=== PATIENT | female | born 1955 | race Caucasian/White ===

== ENCOUNTER → 2019-10-01 16:15 | Outpatient (BNVA) | payer MEDICARE, MEDICAID, SELFPAY | PROVIDERS: Family Provider Family Medicine; PCP Family Medicine; Visit Provider Family Medicine | DX: M79.641 Pain in right hand (principal); M79.89 Other specified soft tissue disorders; M25.552 Pain in left hip; G89.29 Other chronic pain; F11.21 Opioid dependence, in remission; G47.00 Insomnia, unspecified; G89.4 Chronic pain syndrome; F31.9 Bipolar disorder, unspecified; F41.1 Generalized anxiety disorder; M19.90 Unspecified osteoarthritis, unspecified site | CPT/HCPCS: 73130; 80053; 81000; 81003; 82306; 82607; 82652; 84443; 85007; 85027; 85651; 86140; 86160; 86235; 86431 ==

== ENCOUNTER → 2019-12-11 09:07 | Outpatient (BNVA) | payer MEDICARE, MEDICAID, SELFPAY | PROVIDERS: Family Provider Family Medicine; PCP Family Medicine; Visit Provider Counselor Professional | DX: F33.2 Major depressive disorder, recurrent severe without psychotic features (principal); F41.1 Generalized anxiety disorder | CPT/HCPCS: 90791 ==

== ENCOUNTER → 2020-01-09 08:48 | Outpatient (BNVA) | payer MEDICARE, MEDICAID, SELFPAY | PROVIDERS: Family Provider Family Medicine; PCP Family Medicine; Visit Provider Psychiatry & Neurology Psychiatry | DX: F41.1 Generalized anxiety disorder (principal); F33.2 Major depressive disorder, recurrent severe without psychotic features; F17.200 Nicotine dependence, unspecified, uncomplicated; F11.21 Opioid dependence, in remission | CPT/HCPCS: 99204 ==

== ENCOUNTER → 2020-02-17 07:57 | Outpatient (BNVA) | payer MEDICARE, MEDICAID, SELFPAY | PROVIDERS: Family Provider Family Medicine; PCP Family Medicine; Visit Provider Psychiatry & Neurology Psychiatry | DX: F31.9 Bipolar disorder, unspecified (principal); F11.21 Opioid dependence, in remission; F17.200 Nicotine dependence, unspecified, uncomplicated; F33.2 Major depressive disorder, recurrent severe without psychotic features; F41.1 Generalized anxiety disorder | CPT/HCPCS: 99213 ==

== ENCOUNTER → 2020-08-31 14:03 | Outpatient (BNVA) | payer MEDICARE, MEDICAID, SELFPAY | PROVIDERS: Family Provider Family Medicine; PCP Family Medicine; Visit Provider Family Medicine | DX: S69.91XA Unspecified injury of right wrist, hand and finger(s), initial encounter (principal); X58.XXXA Exposure to other specified factors, initial encounter | CPT/HCPCS: 73130 ==

== ENCOUNTER → 2020-10-07 14:53 | Outpatient (BNVA) | payer MEDICARE, MEDICAID, SELFPAY | PROVIDERS: Family Provider Family Medicine; PCP Family Medicine; Visit Provider Podiatrist Foot & Ankle Surgery | DX: M79.671 Pain in right foot (principal); M79.672 Pain in left foot | CPT/HCPCS: 73630 ==

== ENCOUNTER → 2021-03-29 15:43 | Outpatient (BNVA) | payer MEDICARE, MEDICAID, SELFPAY | PROVIDERS: Family Provider Family Medicine; Visit Provider Podiatrist Foot & Ankle Surgery | DX: M79.671 Pain in right foot (principal); M79.672 Pain in left foot | CPT/HCPCS: 73630 ==

== ENCOUNTER → 2021-04-12 09:55 | Outpatient (BNVA) | payer MEDICARE, MEDICAID, SELFPAY | PROVIDERS: Family Provider Family Medicine; Visit Provider Family Medicine | DX: M20.41 Other hammer toe(s) (acquired), right foot (principal); M20.42 Other hammer toe(s) (acquired), left foot; G25.81 Restless legs syndrome; J44.9 Chronic obstructive pulmonary disease, unspecified; G89.4 Chronic pain syndrome; M19.90 Unspecified osteoarthritis, unspecified site; F51.04 Psychophysiologic insomnia; F31.9 Bipolar disorder, unspecified; R03.0 Elevated blood-pressure reading, without diagnosis of hypertension | CPT/HCPCS: 87635 ==

== ENCOUNTER 2021-04-15 07:52 | Day surgery (SDC) | payer MEDICARE, MEDICAID, SELFPAY ==
[2021-04-14 10:44] VITALS: BMI 19.5
[2021-04-15] VITALS (8 sets, daily range): BP systolic 103–164; BP diastolic 53–99; PULSE 59–80; RESP 14–18; TEMP 36.2–36.8; O2SAT 94–100
--- NOTE | 2021-04-15 | SCC_ITS ---
Procedure Done: Right Connor osteotomy. Left plantar fascia fibromatosis. CPT [place] 02370 [place] 30682 1 second of fluoroscopic guidance, for a cumulative dose of 0.02 mGy, was provided to Dr. Shultz by the radiology department. C-arm images of the RIGHT foot were saved for the patient's permanent record. [facility]
[2021-04-15] MEDS: sodium chloride 0.9% 1,000 ML 30 ML IV (08:44)
--- NOTE | 2021-04-15 08:48 | ANES.PREANE2 ---
Pre-Anesthetic Assessment Pre-Anesthetic Assessment: Height/Weight: Height 1.5 m Weight 43.998 kg Temp Pulse Resp BP Pulse Ox 97.1 F L 69 18 151/67 94 04/15/21 08:19 04/15/21 08:19 04/15/21 08:19 04/15/21 08:19 04/15/21 08:19 Preop Diagnosis: Right bunion and right second hammertoe Proposed Procedure: Operation Date: 04/15/21 09:10 Proposed Procedures p Connor Osteotomy 98318 22046 M20.12 M20.42(Right) - Hal Shultz DPM s Hammertoe Correction(Right) - Hal Shultz DPM Familial anesthetic complications: none Was Beta Ashwin taken within 24 hours: N/A Was Clonidine taken within 24 hours: N/A Last intake: Intake Last Liquid Date 04/14/21 Last Liquid Time 22:00 Last Solid Date 04/14/21 Last Solid Time 17:00 Social: Social History: Tobacco and No alcohol Exam: Pre-Anes Outpt Exam: alert, oriented x 3, clear to auscultation bilaterally and regular rate & rhythm Additional Exam Findings (including area of procedure): diminished Airway: Cervical ROM: WNL MP: 2 Dentition: Other (no teeth) Pulmonary: Pulmonary: COPD Anesthetic Plan: ASA status: 3 Anesthesia: MAC Risk of > 500 ml blood loss (7ml/kg in children): No Meds/Allergies Current Medications: Current Medications Generic Name Dose Route Start Last Admin Trade Name Freq PRN Reason Stop Dose Admin Sodium Chloride 1,000 mls @ 30 ml s/hr 04/15/21 08:15 04/15/21 08:44 Sodium Chloride 0.9% IV 04/16/21 08:14 30 mls/hr .Q24H SHERINE Administration PFSH Anesthesia PFSH: Medical History Bipolar depression Chronic arthritis Chronic migraine Chronic pain syndrome COPD with asthma Fibromyalgia Foot pain, bilateral TOMMIE (generalized anxiety disorder) GERD (gastroesophageal reflux disease) Insomnia Lower extremity surgery planned Opioid dependence in remission She has a history of dependence on opioids. She is not going to be restarted on these medications. Due to her positive meth in urine I doubt any Pain Management Clinic will see her. Restless leg syndrome Surgical History H/O section S/P tubal ligation Family History Father Cancer Brother Cancer Social History Smoking and tobacco status: current every day smoker cigarettes Quit status (tobacco): has quit using tobacco Second hand smoke exposure: No Alcohol intake: never Desire information about alcohol rehabilitation?: No Desire information about substance/drug rehabilitation?: No History of recent travel: No Current gender identity: Female Female Reproductive History: Spontaneous abortions: No Data Anesthesia Cardiac Studies: No Data to Display
--- NOTE | 2021-04-15 09:18 | P.HPUD_ITS ---
Surgery/Procedure H&P Update DATE OF PROCEDURE: April 15, 2021 DATE H&P PERFORMED: 04/12/21 H&P UPDATE INFORMATION: I have reviewed H&P completed within last 30 days, I have examined patient prior to procedure, No changes to prior documentation and H&P is in [facility] [place] EMR on date indicated PREOP DIAGNOSIS: Right bunion and right second hammertoe PLANNED PROCEDURE: Operation Date: 04/15/21 09:10 Proposed Procedures p Connor Osteotomy 13320 [id number] M20.12 M20.42(Right) - Hal Shultz DPM s Hammertoe Correction(Right) - Hal Shultz DPM
--- NOTE | 2021-04-15 09:27 | P.HPUD_ITS ---
Surgery/Procedure H&P Update DATE OF PROCEDURE: April 15, 2021 DATE H&P PERFORMED: 04/12/21 H&P UPDATE INFORMATION: I have reviewed H&P completed within last 30 days, I have examined patient prior to procedure, No changes to prior documentation and H&P is in [facility] [place] EMR on date indicated PREOP DIAGNOSIS: Right bunion and second hammertoe. Left foot plantar fibromatosis PRIMARY INDICATION FOR PROCEDURE: Right bunion, right second hammertoe, left plantar fibromatosis PLANNED PROCEDURE: Operation Date: 04/15/21 09:10 Proposed Procedures p Connor Osteotomy 20047 [id number] M20.12 M20.42(Right) - Hal Shultz DPM s Hammertoe Correction(Right) - Hal Shultz DPM Left plantar fascia cortisone injection
--- NOTE | 2021-04-15 09:29 | P.OP_ITS ---
Operative Report Date of procedure: April 15, 2021 Pre-op Diagnosis: Right bunion and second hammertoe. Left foot plantar fibromatosis Post-op diagnosis: same Post-op Findings: Improved alignment to the right bunion without indication for second hammertoe repair. Left plantar fibromatosis in the medial band of the plantar fascia. Procedure Done: Right Connor osteotomy. Left plantar fascia fibromatosis. CPT code 37723 and 60129 Implants: Arlington 28 10 mm x 10 mm x 10 mm angled staple 4-0 Vicryl, 4-0 nylon Specimens removed/disposition: None Pathology: none sent Surgeon: Hal Shultz D.P.M. [employer]: Amaury Anesthesia: MAC Estimated blood loss: Less than 5 mL Tourniquet time: 22 minutes IV fluids: None Urine output: None Complications: None Findings: None Condition: stable Disposition: PACU Brief History: Patient has a hallux valgus deformity to her right foot that has failed padding, offloading and wide accommodative shoes this continues to rub her second toe causing friction, irritation, callus buildup and pain. She like to discuss straightening of her great toe and possible hammertoe repair. She also has plantar fibromatosis this is a palpable mass at the medial band of her left plantar fascia this has been progressively more painful and would like to have a cortisone shot to this while she is asleep. Risks include pain, b leeding, numbness, infection, hardware irritation, hardware failure, delayed union, malunion, nonunion, recurrence of deformity, need for further surgical intervention, plantar fascial rupture. Patient is agreeable wishes to proceed. Has been n.p.o. since midnight. Covid screening negative. Informed consent signed. I initialed her right and left foot, no guarantees written, expressed or implied. Procedure: Under mild sedation the patient was brought to the operating room and placed on the operating table in supine position. A timeout was performed. Anesthesia was then administered by the anesthesia service. Local anesthesia injected by myself consisting of 0.5% Marcaine plain total of 20 cc right Rivers block fashion. Well-padded pneumatic tourniquet applied to the right ankle. Left foot alcohol wipe applied directly to the left plantar foot near the palpable mass and a cortisone injection consisting of 1 to one-to-one mixture of 1 cc of 0.5 Marcaine, 1 cc of dexamethasone and 1 cc of Kenalog injected directly to and surrounding the left plantar fascial mass. This was covered with a Band-Aid. Next the right lower extremity was scrubbed, pleura and draped and prepped utilizing normal aseptic technique. Right foot wrapped with an Esmarch bandage and the tourniquet inflated to 200 mmHg. Attention was directed to the medial aspect of the right hallux where a linear longitudinal incision was made at the level of the proximal phalanx dissection carried through subcutaneous tissue down to periosteum utilizing blunt and sharp technique. Care was taken to retract and preserve neurovascular and tendinous structures. All bleeders were ligated and cauterized as necessary. Periosteal tissue was reflected dorsally and plantarly and a Connor osteotomy was performed at the diaphyseal metaphyseal junction proximally maintaining a lateral cortical hinge. This was then closed off bone which was passed from operative field and fixated utilizing a Arlington 28 10 mm x 10 mm x 10 mm angled staple with excellent bony apposition and compression noted without violating the first metatarsophalangeal joint confirmed with fluoroscopy. Incision was flushed with saline solution and closed in a layered fashion 4-0 Vicryl with subcutaneous tissue and 4-0 nylon on skin. Tourniquet was deflated and a prompt hyperemic response was noted to the distal digits of the right foot patient tolerated the procedure well and was transferred to the PACU with vital signs stable vascular status intact. Exparel 10 cc expanded with Marcaine was injected about the operative site of note the corrected position of the hallux negated the need for hammertoe correction there is no friction rubbing or valgus deformity. Patient will be discharged home after period of perioperative monitoring.
[2021-04-15] MEDS: triamcinolone 40 mg/mL SDV IM (09:58)
[2021-04-15] MEDS: dexamethasone 4 mg/mL INJ INJECTION (09:59)
--- NOTE | 2021-04-15 10:22 | XR_ITS ---
WS: [id number] Right foot, 3 views, 04/15/2021 Clinical Data: post op Comparison: Right foot, 03/29/2021. Findings: The patient had an osteotomy of the base of the right first proximal phalanx of the foot. There is an orthopedic staple at the base of the proximal phalanx. XR/XR foot RT min 3V* [id number] Impression: Osteotomy of the right foot first proximal phalanx.
--- NOTE | 2021-04-15 16:01 | ANE.PACU2 ---
Inpatient post-anesthesia follow up: Airway intact: Yes Vital signs: Temperature 98.2 F Pulse Rate 80 Respiratory Rate 16 Blood Pressure 164/99 Pulse Oximetry 98 Oxygen Delivery Me thod Room Air Oxygen Flow Rate 8 Fraction of Inspir ed Oxygen Hydration adequate: Yes Nausea and vomiting: No Pain level: 3 Mental status: Baseline
== END 2021-04-15 11:50 | disposition home or self-care (01) ==
PROVIDERS: Visit Provider Podiatrist Foot & Ankle Surgery
PROC: (CPT 28298; principal; 2021-04-15 09:00)
PROC: 3E0U3GC Introduction of Other Therapeutic Substance into Joints, Percutaneous Approach (ICD-10-PCS; CPT 20610; 2021-04-15 09:00)
DX: M21.611 Bunion of right foot (principal); M20.41 Other hammer toe(s) (acquired), right foot; M72.2 Plantar fascial fibromatosis; J44.9 Chronic obstructive pulmonary disease, unspecified; M79.7 Fibromyalgia; F17.210 Nicotine dependence, cigarettes, uncomplicated
CPT/HCPCS: 20550; 28298; 73630; 76000; C1713; C9290; J0690; J1100; J2704; J3010; J3301; J3490; J7030

== ENCOUNTER → 2021-04-28 13:10 | Outpatient (BNVA) | payer MEDICARE, MEDICAID, SELFPAY | PROVIDERS: Visit Provider Podiatrist Foot & Ankle Surgery | DX: Z98.890 Other specified postprocedural states (principal) | CPT/HCPCS: 73630 ==

== ENCOUNTER → 2021-05-12 14:48 | Outpatient (BNVA) | payer MEDICARE, MEDICAID, SELFPAY | PROVIDERS: Visit Provider Podiatrist Foot & Ankle Surgery | DX: Z47.89 Encounter for other orthopedic aftercare (principal) | CPT/HCPCS: 73630 ==

== ENCOUNTER → 2022-09-18 10:55 | Outpatient (BNVA) | payer MEDICARE, MEDICAID, SELFPAY | PROVIDERS: PCP Family Medicine; Visit Provider Podiatrist Foot & Ankle Surgery | DX: T84.84XA Pain due to internal orthopedic prosthetic devices, implants and grafts, initial encounter (principal); Y79.2 Prosthetic and other implants, materials and accessory orthopedic devices associated with adverse incidents | CPT/HCPCS: 73630; 99214 ==

== ENCOUNTER → 2022-09-22 05:31 | Day surgery (SDC) | payer MEDICARE, MEDICAID, SELFPAY ==
[2022-09-22 06:02] VITALS: BP 155/91; PULSE 96; RESP 17; TEMP 37.1; O2SAT 95
--- NOTE | 2022-09-22 06:09 | W.PM.OPSUD ---
Surgery/Procedure H&P Update DATE OF PROCEDURE: September 22, 2022 DATE H&P PERFORMED: 09/18/22 CHANGES TO PREVIOUS DOCUMENTATION: None PREOP DIAGNOSIS: Painful hardware right great toe PLANNED PROCEDURE: Operation Date: 09/22/22 07:20 Proposed Procedures p Hardware removal right great toe 52239,T84.84XA(Right) - Hal Shultz DPM
--- NOTE | 2022-09-22 06:10 | P.OP_ITS ---
Operative Report Date of procedure: September 22, 2022 Pre-op diagnosis: Preop Diagnosis Painful hardware right great toe Post-op diagnosis: Same Post-op findings: None Procedure done: Hardware removal right great toe Implants: 4-0 nylon Specimens removed/disposition: Nitinol staple 10 mm x 10 mm x 10 mm disposed of Pathology: None Surgeon: Hal Shultz D.P.M. [employer] Instructor: Valerie Estimated blood loss: 5 8 IV fluids: None Urine output: 0 Complications: None Brief History: Patient examined and evaluated, findings and treatment options were discussed with patient at length.? Patient has pain at hardware site right hallux medial aspect of the proximal phalanx.? X-ray right foot 3 view shows complete osseous healing of Connor osteotomy of the right hallux.? Clinically and subjectively she is having pain at the hardware site and is requesting hardware removal.? I reviewed at length with the patient, the risks, potential complications, benefits, alternatives, expectations, and typical outcomes associated with the surgery. The risks and potential complications were explained in detail, including but not limited to infection, wound dehiscence or soft tissue complications, bleeding and hematoma, chronic edema, neuritis or nerve damage producing numbness or chronic pain, CRPS, failure to relieve pain or worsening pain, thick / painful / unsightly scar, limited motion / stiffness, malposition, delayed union, malunion, or nonunion, fracture, reaction to implants, anesthetic complications, venous thromboembolism, and deformity recurrence.? I discussed the notion of no regrets with the patient as it pertains to complications and outcomes. The patient seemed to understand the nature of the proposed care and required convalescence. They asked appropriate questions, answered to their satisfaction. They are aware no guarantees can be made as to a satisfactory outcome and they understand there may be other possible unforeseen complications or outcomes not listed here that will be treated accordingly if they arise. There were no written or implied guarantees given to the patient. They gave inf ormed consent to proceed. Procedure: Under mild sedation the patient was brought to the operating room and remained on the gurney in supine position. A timeout was performed. Anesthesia was then administered by the anesthesia service. Local anesthesia was injected by myself consisting of 20 cc of 0.5% Marcaine plain and 10 cc of Exparel. Marcaine was injected in a right Rivers block fashion. Exparel was infiltrated in the subcutaneous grid like fashion proximal to the surgical site. Well-padded pneumatic tourniquet was applied to the right ankle. The right lower extremity was scrubbed, prepped and draped utilizing normal aseptic technique. Right lower extremity was exanguinated with a Esmarch bandage and the tourniquet inflated to 250 mmHg. Attention was directed to the medial aspect of the right hallux proximal phalanx level where a previous incision was appreciated. Directly over previous incision/cicatrix a linear longitudinal incision was made with a #15 blade through skin with dissection carried down through subcutaneous tissue to the layer of hardware. A nitinol compression staple was encountered implanted to bone and extracted utilizing a freer elevator in total without fragmentation. The staple was passed from the operative field and will be disposed of. No failure of the staple was appreciated. The phalanx of the right hallux was well-healed without any bony abnormality. Smooth range of motion was appreciated at the right hallux interphalangeal joint and at the right first metatarsal phalangeal joint. The incision was flushed with copious amounts of sterile saline solution. Incision site was closed with 4-0 nylon. Incision was dressed with Adaptic, sterile 4 x 4, Marimar and Coban. Postop shoe applied to the right foot. Tourniquet was deflated and a prompt hyperemic response is noted to the distal digits of the right foot. Patient tolerated the procedure and anesthesia well. She was transferred to the PACU with vital signs stable and vascular status intact. Following a period of postoperative monitoring she will be discharged home may be weightbearing as tolerated below threshold of octavio n. Is to elevate her right foot at all times while resting. Was provided prescription for hydrocodone 7.5/325 mg to be taken judiciously every 6 hours as needed for pain. Will be following up in podiatry clinic 09/29/2022 at 1:00 PM. Was provided discharge instructions, home care instructions and my cell phone number to contact with any postoperative questions or concerns.
[2022-09-22] MEDS: sodium chloride 0.9% 1,000 ML 30 ML IV (06:41)
--- NOTE | 2022-09-22 06:41 | P.ANESASSM_ITS ---
Pre-Anesthetic Assessment Height/Weight: Height 1.5 m Weight 39.009 kg Temp Pulse Resp BP Pulse Ox O2 Del Method 98.8 F 96 17 155/91 95 09/22/22 06:02 09/22/22 06:02 09/22/22 06:02 09/22/22 06:02 09/22/22 06:02 09/22/22 06:09 Preop Diagnosis: Painful hardware right great toe Operation Date: 09/22/22 07:20 Proposed Procedures p Hardware removal right great toe 59049,T84.84XA(Right) - Hal Shultz DPM Familial anesthetic complications: NONE Was Beta Ashwin taken within 24 hours: N/A Was Clonidine taken within 24 hours: N/A Last intake: Intake Last Liquid Date 09/21/22 Last Liquid Time 21:00 Last Solid Date 09/21/22 Last Solid Time 21:00 Social Tobacco and No alcohol Exam alert, oriented x 3, clear to auscultation bilaterally and regular rate & rhythm Airway Mallampati: Class II Dentition: other (no teeth) Pulmonary Chronic Obstructive Pulmonary Disease Neuropsych Anxiety Anesthetic Plan ASA status: 3 Anesthesia: MAC Risk of > 500 ml blood loss (7ml/kg in children): No Medications/Allergies Home Medications Medication Instructions Recorded Confirmed Last Taken Type multivitamin with minerals-folic 1 tab PO DAILY #30 tabs 09/04/20 09/21/22 09/21/22 Rx acid 200 mcg chewable tablet (Adult Multivitamin Gummies) Walker #1 ea 04/15/21 09/18/22 Unknown Rx albuterol sulfate 2.5 mg/3 mL 2.5 mg (3 mL) inhalation QID PRN 02/09/22 09/21/22 09/21/22 Rx (0.083 %) solution for nebulization shortness of breath or wheezing #180 mL cyclobenzaprine 10 mg tablet 10 mg PO .at bedtime 30 days #30 02/09/22 09/21/22 09/20/22 Rx tabs diclofenac sodium 1 % topical gel 4 g topical BID PRN pain #1,200 02/09/22 09/21/22 09/20/22 Rx grams pramipexole 1 mg tablet See Rx Instructions .Route 02/09/22 09/21/22 09/21/22 Rx .COMPLEX 90 days #90 tabs albuterol sulfate 90 mcg/actuation See Rx Instructions .Route 07/04/22 09/21/22 09/21/22 Rx aerosol inhaler .COMPLEX #8.5 grams budesonide-formoterol HFA 160 2 puff inhalation BID 30 days 07/04/22 09/21/22 09/21/22 Rx mcg-4.5 mcg/actuation aerosol #10.2 grams inhaler (Symbicort) hydrocodone 7.5 mg-acetaminophen 1 tab PO Q6H PRN pain 7 days #28 09/22/22 Unknown Rx 325 mg tablet tabs Allergies Allergy/AdvReac Type Severity Reaction Status Date / Time morphine Allergy Intermediate ADR-Halluci Verified 09/21/22 15:05 [facility] Anesthesia Medical History Bipolar depression Chronic arthritis Chronic migraine Chronic pain syndrome COPD with asthma Fibromyalgia Foot pain, bilateral TOMMIE (generalized anxiety disorder) GERD (gastroesophageal reflux disease) Insomnia Lower extremity surgery planned Opioid dependence in remission She has a history of dependence on opioids. She is not going to be restarted on these medications. Due to her positive meth in urine I doubt any Pain Management Clinic will see her. Restless leg syndrome Surgical History H/O section S/P tubal ligation Family History Father Cancer Brother Cancer Social History Smoking and tobacco status: current every day smoker cigarettes Quit status (tobacco): has quit using tobacco Second hand smoke exposure: No Alcohol intake: never Desire information about alcohol rehabilitation?: No Desire information about substance/drug rehabilitation?: No History of recent travel: No Current gender identity: Female Female Reproductive History Spontaneous abortions: No Data Anesthesia Cardiac Studies: No Data to Display
[2022-09-22] MEDS: ceFAZolin 2,000 MG in sodium chloride 0.9% (plus) 50 ML 100 MG IV (06:54)
[2022-09-22 07:25] VITALS: BP 109/65; PULSE 93; RESP 14; TEMP 36.5; O2SAT 97
[2022-09-22 07:30] VITALS: BP 108/68; PULSE 89; RESP 14; O2SAT 96
[2022-09-22 07:50] VITALS: BP 152/89; PULSE 82; RESP 16; TEMP 36.6; O2SAT 95
--- NOTE | 2022-09-22 14:02 | ANE.PACU2 ---
Inpatient post-anesthesia follow up: Airway intact: Yes Vital signs: Temperature 97.8 F Pulse Rate 82 Respiratory Rate 16 Blood Pressure 152/89 Pulse Oximetry 95 Oxygen Delivery Me thod Room Air Oxygen Flow Rate Fraction of Inspir ed Oxygen Hydration adequate: Yes Nausea and vomiting: No Pain level: 1 Mental status: Baseline
== END | disposition home or self-care (01) ==
PROVIDERS: PCP Family Medicine; Visit Provider Podiatrist Foot & Ankle Surgery
PROC: (CPT 20680; principal; 2022-09-22 07:00)
DX: T84.84XA Pain due to internal orthopedic prosthetic devices, implants and grafts, initial encounter (principal); J44.9 Chronic obstructive pulmonary disease, unspecified; F41.1 Generalized anxiety disorder; F17.210 Nicotine dependence, cigarettes, uncomplicated; Y83.8 Other surgical procedures as the cause of abnormal reaction of the patient, or of later complication, without mention of misadventure at the time of the procedure
CPT/HCPCS: 20680; C9290; J0690; J2704; J3010; J3490; J7030

== ENCOUNTER → 2022-09-29 12:40 | Outpatient (BNVA) | payer MEDICARE, MEDICAID, SELFPAY | PROVIDERS: PCP Family Medicine; Visit Provider Podiatrist Foot & Ankle Surgery | DX: Z98.890 Other specified postprocedural states (principal) | CPT/HCPCS: 99024 ==

== ENCOUNTER → 2022-10-06 13:56 | Outpatient (BNVA) | payer MEDICARE, MEDICAID, SELFPAY | PROVIDERS: PCP Family Medicine; Visit Provider Podiatrist Foot & Ankle Surgery | DX: Z98.890 Other specified postprocedural states (principal) | CPT/HCPCS: 73630 ==

== ENCOUNTER → 2022-11-28 09:04 | Outpatient (BNVA) | payer MEDICARE, MEDICAID, SELFPAY | PROVIDERS: PCP Family Medicine; Referring Provider Family Medicine; Visit Provider Psychiatry & Neurology Neurology | DX: R53.1 Weakness; M79.643 Pain in unspecified hand; R29.898 Other symptoms and signs involving the musculoskeletal system; R20.2 Paresthesia of skin; M79.601 Pain in right arm; M79.602 Pain in left arm; G45.1 Carotid artery syndrome (hemispheric); R41.89 Other symptoms and signs involving cognitive functions and awareness; M79.641 Pain in right hand; M79.642 Pain in left hand; M25.551 Pain in right hip; M25.511 Pain in right shoulder; Z85.42 Personal history of malignant neoplasm of other parts of uterus; Z85.828 Personal history of other malignant neoplasm of skin; F17.210 Nicotine dependence, cigarettes, uncomplicated; Z91.81 History of falling; Z98.890 Other specified postprocedural states | CPT/HCPCS: 99203 ==

== ENCOUNTER → 2022-12-14 09:05 | Outpatient (BNVA) | payer MEDICARE, MEDICAID, SELFPAY | PROVIDERS: PCP Family Medicine; Visit Provider Family Medicine | DX: G89.29 Other chronic pain (principal); M79.642 Pain in left hand; M54.50 Low back pain, unspecified; M25.512 Pain in left shoulder; M25.551 Pain in right hip; M25.552 Pain in left hip; M79.641 Pain in right hand; M25.511 Pain in right shoulder | CPT/HCPCS: 72100; 73030; 73130; 73523 ==

== ENCOUNTER 2022-12-19 10:06 | Outpatient (CLI) | payer MEDICARE, MEDICAID, SELFPAY ==
--- NOTE | 2022-12-19 10:30 | USCV_ITS ---
Catherine Grider Age: 67 Gender: F : 1955 Exam Date: 12/19/2022 10:41 Ordering Phys: Darrian Galicia MD Technologist: Exam Location: [facility] [place] Indication: tia Risk Factors: Previous Vascular Surgery: Right Brachial BP: / Left Brachial BP: / Right Left Velocity (cm/s) Spectral Plaque Velocity (cm/s) Spectral Plaque Syst/Diast Broadening Syst/Diast Broadening 60.30/ 11.70 Prox CCA 48.60 / 7.90 51.30/ 11.70 Mid CCA 41.40 / 7.90 46.50/ 12.80 Hetro Distal CCA 44.00 / 9.90 Hetro 69.70/ 21.00 Prox ICA 63.10 / 13.80 61.50/ 17.90 Mid ICA 73.00 / 24.30 70.90/ 21.40 Distal ICA 70.30 / 21.00 109.10 ECA 64.40 1.18 ICA/CCA 1.50 Antegrade Vertebral Antegrade 72.60/ 16.20 cm/s 51.90/ 11.20 cm/s Bi Subclavian Bi 72.60 63.10 CONCLUSIONS Right ICA stenosis <50%. Mild calcified atheromatous plaque right carotid bulb/ICA. Left ICA stenosis <50%. Mild calcified atheromatous plaque left carotid bulb/ICA. Normal antegrade Doppler flow noted in the right vertebral artery. Normal antegrade Doppler flow noted in the left vertebral artery. Unruly Curry MD (Electronically Signed) Final Date: 19 Dec 2022 15:52 S
== END 2022-12-19 10:07 | disposition home or self-care (01) ==
LOC: RAD 10:10
PROVIDERS: PCP Family Medicine; Visit Provider Psychiatry & Neurology Neurology
DX: G45.1 Carotid artery syndrome (hemispheric) (principal)
CPT/HCPCS: 93880

== ENCOUNTER 2022-12-21 09:03 | Outpatient (CLI) | payer MEDICARE, MEDICAID, SELFPAY ==
--- NOTE | 2022-12-21 09:30 | MR_ITS ---
WS: [id number] MRI BRAIN WITHOUT CONTRAST HISTORY: R41.3 - Other amnesia COMPARISON: None available. TECHNIQUE: Diffusion imaging, multiplanar T1, T2 and FLAIR imaging obtained. No evidence for acute infarct or hemorrhage. Helm-white matter differentiation is normal. Mild atroph y cerebellum and cerebrum. No acute infarcts. Mild scattered T2 and signal hyperintensities from small vessel ischemic disease. Nearly symmetric distribution. No prior infarct. Ventricles and extra-axial spaces are normal. No inferior displacement of cerebellar tonsils. The sella turcica and pituitary gland are unremarkabl e. Dural venous sinuses and port gamble of Colmenares demonstrate no abnormality on this unenhanced studies. Paranasal sinuses: Clear. Mastoid air cells: Normal. Calvarium and scalp: Intact. MR/MR head wo con* [id number] IMPRESSION: 1. No acute infarct or hemorrhage. 2. Mild atrophy and small vessel ischemic changes. 3. No prior chronic infarcts.
[2022-12-21 11:05] LABS: Basophils % 0.5 %; Eosinophils # 0.1 10^3/uL (0.0-0.8); Eosinophils % 1.2 %; Hematocrit 46.8 % (37.0-47.0); Hemoglobin 14.8 g/dL (11.5-15.3); Lymphocytes # 1.3 10^3/uL (0.8-4.8); Mean Corpuscular HGB Conc 31.6 g/dL (30.0-36.0); Mean Corpuscular Hemoglobin 29.4 pg (28.0-34.0); Mean Platelet Volume 9.9 fL (7.4-10.4); Monocytes # 0.5 10^3/uL (0.2-0.9); Monocytes % 7.5 %; Neutrophils # 4.13 10^3/uL (1.8-7.7); Neutrophils % 68.6 %; Nucleated Red Blood Cells % 0 %; Platelet Count 289 10^3/cmm (130-400); Red Blood Count 5.03 10^6/uL (4.1-5.3); Red Cell Distribution Width 12.2 % (12.1-15.1)
[2022-12-21 11:50] LABS: Alanine Aminotransferase 11 U/L (0-33); Albumin Level 4.2 g/dL (3.5-5.2); Alkaline Phosphatase 80 U/L (35-105); Anion Gap 11.8 (5-19); Aspartate Amino Transferase 16 U/L (0-32); Blood Urea Nitrogen 16 mg/dL (8-23); Calcium 9.1 mg/dL (8.5-10.5); Carbon Dioxide 29 mmol/L (22-29); Chloride 103 mmol/L (98-107); Globulin 2.3 g/dL (1.3-4.6); Glomerular Filtration Rate 71.3 mL/min (90-130); Glucose 92 mg/dL (65-115); Osmolality Calculated 291 mOsm/kg (285-295); Potassium 3.8 mmol/L (3.5-5.1); Sodium 140 mmol/L (136-145); Thyroid Stimulating Hormone 0.52 uIU/mL (0.27-4.20); Total Bilirubin 0.4 mg/dL (0.15-1.2); Total Protein 6.5 g/dL (6.6-8.7); Vitamin B12 582 pg/mL (232-1245)
[2022-12-22 00:15] LABS: Free T4 Free Thyroxine 1.11 ng/dL (0.82-1.77); T3 Free 2.4 PG/ML (2.0-4.4)
[2022-12-22 12:55] LABS: COMPLEMENT, TOTAL (CH50) 57 U/mL (31-60)
[2022-12-22 13:44] LABS: COMPLEMENT COMPONENT C3C 105 mg/dL (83-193); COMPLEMENT COMPONENT C4C 27 mg/dL (15-57)
[2022-12-22 13:59] LABS: CENTROMERE B ANTIBODY <1.0 NEG AI (<1.0 NEG); JO-1 ANTIBODY <1.0 NEG AI (<1.0 NEG); RNP ANTIBODY <1.0 NEG AI (<1.0 NEG); SCL-70 ANTIBODY <1.0 NEG AI (<1.0 NEG); SJOGREN'S ANTIBODY (SS-A) <1.0 NEG AI (<1.0 NEG); SM ANTIBODY <1.0 NEG AI (<1.0 NEG); SS-B <1.0 NEG AI (<1.0 NEG)
[2022-12-22 15:45] LABS: ANA SCREEN, IFA NEGATIVE (NEGATIVE)
[2022-12-25 10:34] LABS: THYROID PEROXIDASE ANTIBODIES 1 IU/mL (<9)
[2022-12-26 10:29] LABS: DNA AB (DS) CRITHIDIA,IFA NEGATIVE (NEGATIVE)
[2022-12-27 06:19] LABS: Methylmalonic Acid 239 nmol/L (87-318)
== END 2022-12-21 09:04 | disposition home or self-care (01) ==
LOC: RAD 09:05
PROVIDERS: PCP Family Medicine; Visit Provider Psychiatry & Neurology Neurology
DX: R41.3 Other amnesia (principal); R53.1 Weakness; I67.89 Other cerebrovascular disease
CPT/HCPCS: 70551; 80053; 82607; 83921; 84439; 84443; 84481; 85025; 86140; 86160; 86162; 86235; 86255; 86376; 86431; 99203

== ENCOUNTER → 2023-01-03 12:44 | Outpatient (BNVA) | payer MEDICARE, MEDICAID, SELFPAY | PROVIDERS: PCP Family Medicine; Visit Provider Psychiatry & Neurology Neurology | DX: R41.3 Other amnesia (principal); Z85.828 Personal history of other malignant neoplasm of skin; Z85.42 Personal history of malignant neoplasm of other parts of uterus; M79.641 Pain in right hand; M79.642 Pain in left hand; M19.011 Primary osteoarthritis, right shoulder; M19.012 Primary osteoarthritis, left shoulder; M16.9 Osteoarthritis of hip, unspecified; Z91.81 History of falling | CPT/HCPCS: 99212 ==

== ENCOUNTER → 2023-01-18 08:00 | Outpatient (BNVA) | payer MEDICARE, MEDICAID, SELFPAY | PROVIDERS: PCP Family Medicine; Visit Provider Psychiatry & Neurology Neurology | DX: G56.03 Carpal tunnel syndrome, bilateral upper limbs (principal) | CPT/HCPCS: 95910; 95912 ==

== ENCOUNTER → 2023-05-31 09:38 | Outpatient (BNVA) | payer MEDICARE, MEDICAID, SELFPAY | PROVIDERS: PCP Family Medicine; Visit Provider Nurse Practitioner Family | DX: J02.9 Acute pharyngitis, unspecified (principal); J06.9 Acute upper respiratory infection, unspecified | CPT/HCPCS: 87880 ==

== ENCOUNTER → 2024-05-26 10:58 | Outpatient (BNVA) | payer MEDICARE, MEDICAID, SELFPAY | PROVIDERS: PCP Family Medicine; Visit Provider Podiatrist Foot & Ankle Surgery | DX: M20.41 Other hammer toe(s) (acquired), right foot; M20.42 Other hammer toe(s) (acquired), left foot; L30.9 Dermatitis, unspecified | CPT/HCPCS: 73630; 99213 ==

== ENCOUNTER → 2024-06-18 15:00 | Outpatient (BNVA) | payer MEDICARE, MEDICAID, SELFPAY | PROVIDERS: PCP Family Medicine; Visit Provider Family Medicine | DX: R31.9 Hematuria, unspecified (principal); M54.50 Low back pain, unspecified; G89.29 Other chronic pain; M46.1 Sacroiliitis, not elsewhere classified; R32 Unspecified urinary incontinence; W19.XXXA Unspecified fall, initial encounter; Y92.009 Unspecified place in unspecified non-institutional (private) residence as the place of occurrence of the external cause | CPT/HCPCS: 72100; 72202; 81000; 87086 ==

== ENCOUNTER → 2024-10-23 12:40 | Outpatient (BNVA) | payer MEDICARE, MEDICAID, SELFPAY | PROVIDERS: PCP Family Medicine; Visit Provider Podiatrist Foot & Ankle Surgery | DX: M79.672 Pain in left foot (principal); M20.41 Other hammer toe(s) (acquired), right foot; M20.42 Other hammer toe(s) (acquired), left foot; M21.622 Bunionette of left foot | CPT/HCPCS: 99213 ==

== ENCOUNTER → 2024-11-14 10:09 | Outpatient (BNVA) | payer MEDICARE, MEDICAID, SELFPAY | PROVIDERS: PCP Family Medicine; Visit Provider Physician Assistant | DX: M65.331 Trigger finger, right middle finger (principal); M65.351 Trigger finger, right little finger; M65.341 Trigger finger, right ring finger | CPT/HCPCS: 73130; 99204 ==

== ENCOUNTER 2024-12-12 06:15 | Day surgery (SDC) | payer MEDICARE, MEDICAID, SELFPAY ==
[2024-12-12] VITALS (8 sets, daily range): BP systolic 116–161; BP diastolic 60–83; PULSE 70–77; RESP 18–19; TEMP 36.1–36.3; O2SAT 95–99; BMI 18.1
[2024-12-12] MEDS: acetaminophen 1,000 MG/100 ML PIGGYBACK 400 MG IV (06:50)
[2024-12-12] MEDS: sodium chloride 0.9% 1,000 ML 30 ML IV (06:50)
[2024-12-12] MEDS: ketorolac 30 mg/mL INJ IVP (06:50)
[2024-12-12] MEDS: scopolamine 1 mg PATCH 1 PATCH TRANSDERMA (06:51)
--- NOTE | 2024-12-12 07:03 | P.ANESASSM_ITS ---
Pre-Anesthetic Assessment Height/Weight: Height 4 ft 10 in Weight 87 lb Temp Pulse Resp BP Pulse Ox O2 Del Method 97.4 F L 70 18 161/80 96 Room Air 12/12/24 06:34 12/12/24 06:34 12/12/24 06:34 12/12/24 06:34 12/12/24 06:34 12/12/24 06:34 Preop Diagnosis: Trigger finger Operation Date: 12/12/24 08:10 Proposed Procedures p right small finger trigger release/ right ring finger trigger release/ right middle finger trigger release(Right) - Jj Estee, DO Was Beta Ashwin taken within 24 hours: N/A Was Clonidine taken within 24 hours: N/A Last intake: Intake Last Liquid Date 12/11/24 Last Liquid Time 18:00 Last Solid Date 12/12/24 Last Solid Time 00:00 Social Tobacco and No alcohol Exam alert, oriented x 3 and regular rate & rhythm Decreased breath sounds bilaterally Airway Submandibular: within normal limits Cervical ROM: within normal limits Mallampati: Class II Comments: Comments: Upper dentures, no bottom teeth Anesthetic Plan ASA status: 3 Anesthesia: MAC Other: No prior issues with anesthesia NPO since yesterday evening History of COPD, current smoker MDD/bipolar METs greater than 4 Plan for MAC anesthesia with local via surgeon Medications/Allergies Home Medications ?Medication ?Instructions ?Recorded ?Confirmed ?Last Taken ?Type multivitamin with minerals-folic 1 tab PO DAILY #30 ta bs 09/04/20 12/12/24 12/10/24 Rx acid 200 mcg chewable tablet (Adult Multivitamin Gummies) baclofen 10 mg tablet 10 mg PO TID 30 days #90 tab s 10/14/24 12/12/24 12/10/24 Rx diclofenac sodium 1 % topical gel 4 g topical BID PRN pain #1,200 10/14/24 12/11/24 Unknown Rx grams pramipexole 0.25 mg tablet 0.25 mg PO BID 30 days #60 tabs 10/14/24 12/12/24 12/05/24 Rx pregabalin 75 mg capsule 75 mg PO BID 30 days #60 cap s 10/14/24 12/12/24 12/05/24 Rx Allergies Allergy/AdvReac Type Severity Reaction Status Date / Time morphine Allergy Intermediate ADR-Halluci Verified 12/12/24 06:32 nating gabapentin AdvReac Intermediate confusion Verified 12/12/24 06:32 Current Medications Generic Name Dose Route Start Last Admin Trade Name Kerry PRN Reason Stop Dose Admin Sodium Chloride 1,000 mls @ 30 mls/hr 12/12/24 06:30 12/12/24 06:50 Sodium Chloride 0.9% IV 12/13/24 06:29 30 mls/hr .Q24H SHERINE Administration PFSH Anesthesia Medical History Foot pain, bilateral Restless leg syndrome Opioid dependence in remission She has a history of dependence on opioids. She is not going to be restarted on these medications. Due to her positive meth in urine I doubt any Pain Management Clinic will see her. Chronic arthritis TOMMIE (generalized anxiety disorder) Fibromyalgia Insomnia Bipolar depression GERD (gastroesophageal reflux disease) Chronic migraine Chronic pain syndrome COPD with asthma Lower extremity surgery planned Surgical History S/P tubal ligation H/O section Family History Father Cancer Brother Cancer Mother Alzheimer disease Social History Smoking and tobacco/nicotine status: current every day tobacco/nicotine user cigarettes Quit status (tobacco/nicotine): has quit using Second hand smoke exposure: No Alcohol intake: never Substance/Drug Use: current Substance/Drug use frequency: few times a month Current gender identity: Female Female Reproductive History Spontaneous abortions: No
--- NOTE | 2024-12-12 08:36 | W.PM.OPSUD ---
Surgery/Procedure H&P Update DATE OF PROCEDURE: December 12, 2024 DATE H&P PERFORMED: 11/14/24 H&P UPDATE INFORMATION: I have reviewed H&P completed within last 30 days, I have examined patient prior to procedure and No changes to prior documentation PREOP DIAGNOSIS: Right small, ring, middle finger triggers PRIMARY INDICATION FOR PROCEDURE: Right small, ring, middle finger triggers PLANNED PROCEDURE: Operation Date: 12/12/24 08:10 Proposed Procedures p right small finger trigger release/ right ring finger trigger release/ right middle finger trigger release(Right) - Jj Fontanez DO
[2024-12-12] MEDS: ceFAZolin 2,000 MG in sodium chloride 0.9% (plus) 50 ML 100 MG IV (08:45)
[2024-12-12] MEDS: lidocaine 1% 10 ML INJ INJECTION (09:00)
[2024-12-12] MEDS: ROPivacaine 0.5% SDV 30 mL 150 MG INJECTION (09:10)
--- NOTE | 2024-12-12 09:34 | W.PM.BPON ---
Date of Procedure: 12/12/2024 Surgeon: Jj Fontanez DO Field Control Inspector(s): None Procedure(s) performed: Right small finger trigger release Right ring finger trigger release Right middle finger trigger release Findings of the procedure(s): Patient underwent procedure as planned without issues or complications. Small ring and middle fingers have a nice smooth gliding 1 patient was able to slowly gently open and close and make a fist there did appear to be some early subtle triggering starting on the index finger. At this point in time this has not been consented or evaluated in the outpatient setting I feel as though this could potentially just resolve after she is got the inflammation from the other fingers recovering after these other triggers have been released and we have not consented for this as result we will see how she responds in postoperative recovery course. Patient family updated on this after. Estimated blood loss: 5 mL Specimen(s) removed: None Post-operative diagnosis: Right small, ring, middle finger trigger, early developing right index finger trigger
--- NOTE | 2024-12-12 09:36 | P.OP_ITS ---
Operative Report Date of procedure: December 12, 2024 Surgeon: Jj Fontanez DO Procedure: Preoperative diagnosis: Right small, ring, middle finger triggers post-op diagnosis: Right small, ring, middle finger triggers, early developing right index finger trigger Procedure done: Right small finger trigger release Right ring finger trigger release Right middle finger trigger release Surgeon: Jj Fontanez DO Estimated blood loss: 5cc Tourniquet time 13mins Complications: None Condition: stable Disposition: same day Brief History: Patient's been seen and worked up in the outpatient setting and findings consistent with preoperative diagnosis of right small, ring,?middle finger?triggers.? Patient is failed conservative treatment.? Continues to have mechanical locking and catching.? Severe pain as well.? We talked about treatment options nonoperative versus operative intervention.? ?Patient understands the risk benefits complication alternatives of surgical nonsurgical treatment options.? Understanding his risks with surgery patient elects proceed with surgical intervention.? Consent obtained in the preoperative holding area.? Here today to proceed with surgical intervention for right small finger trigger release, right ring finger trigger release, right middle finger trigger release..? All questions answered. Procedure: Patient was seen and evaluated in the preoperative holding area.? Consent was reviewed and signed with patient.? Seen evaluated by Anesthesia Department.? Once cleared for surgery was brought back to the operative suite.? Placed in supine position on the OR table all bony prominences well-padded patient properly secured to the bed.? Patient's right arm was then placed to the armboard.? A nonsterile tourniquet applied to the right upper arm.? Patient's right upper extremity was then prepped and draped in standard orthopedic fashion.? Final timeout performed.? Patient received appropriate preoperative antibiotics. Esmarch tourniquet was used exsanguinate the right upper extremity tourniquet insufflated to 250 mmHg. Under sterile aseptic technique local digital block was performed to the right?small, ring, middle finger.? I started with the right middle finger trigger. Once appropriately anesthetized a standard longitudinal/oblique incision was made centering over the A1 jayshree following patient's flexor crease.? Sharp scalpel incision was made only through skin and then switched to Littler dissection scissors and spread longitudinally directly over the flexor tendon sheath.? I then mobilized both radially and ulnarly and Kasdan retractors were used and placed by my information assistant to protect neurovascular bundle.? Next I visualized the A1 jayshree and this was incised with a scalpel.? I then switched to dissection scissors and released the A1 jayshree both proximally as well as distally to its entirety.? Patient's A1 jayshree had significant thickness consistent with trigger finger. Significant tendon sheath fluid was noted consistent with inflammation.? Mild fraying of the flexor tendons noted but no tear.? At this point I utilized a rag nail and pulled the tendons FDS and FDP out of the incision and no?triggering was noted.? I then took the finger through range of motion there is no mechanical triggering this completed the release of the right middle finger. Next I proceeded with the right ring finger trigger. I made a longitudinal incision centering over the A1 jayshree following patient's flexor crease.? Sharp scalpel incision was made only through skin and then switched to Littler dissection scissors and spread longitudinally directly over the flexor tendon sheath.? I then mobilized both radially and ulnarly and Kasdan retractors were used and placed by my information assistant to protect neurovascular bundle.? Next I visualized the A1 jayshree and this was incised with a scalpel.? I then switched to dissection scissors and released the A1 jayshree both proximally as well as distally to its entirety.? Significant tendon sheath fluid was noted consistent with inflammation. Patient's A1 jayshree was noted to be significantly thickened consistent with trigger finger.? Mild fraying of the flexor tendons noted but no tear.? At this point I utilized a rag nail and pulled the tendons FDS and FDP out of the incision and no?triggering was noted.? I was able to take the ring finger through range of motion and no mechanical triggering or catching was noted. This completed the right ring finger trigger release. Lastly I proceeded with the right small finger trigger. A standard longitudinal/oblique incision was made centering over the A1 jayshree following patient's flexor crease.? Sharp scalpel incision was made only through skin and then switched to Littler dissection scissors and spread longitudinally directly over the flexor tendon sheath.? I then mobilized both radially and ulnarly and Kasdan retractors were used and placed by my information assistant to protect neurovascular bundle.? Next I visualized the A1 jayshree and this was incised with a scalpel.? I then switched to dissection scissors and released the A1 jayshree both proximally as well as distally to its entirety.? Significant tendon sheath fluid was noted consistent with inflammation.? Also of note patient had thickened A1 jayshree consistent with trigger finger. Mild fraying of the flexor tendons noted but no tear.? At this point I utilized a rag nail and pulled the tendons FDS and FDP out of the incision and no?triggering was noted.? I then had anesthesia wake up the patient and patient was able to actively flex and extend with no?triggering noted in any of the 3 digits. At this point in time when making a fist it did appear like there was an early start of trigger of her right index finger this only happens sometimes feel this is likely due to release and better movement of the other digits as this was inhibiting her ability to make a full fist. Unfortunately this was not consented and patient was under anesthesia. At this point time would recommend observation of this at this time and will updated family postoperatively as well as patient postoperatively. This point thorough irrigation was performed.? Tourniquet deflated hemostasis satisfactory with bipolar.? I then subsequently closed the incision with interrupted nylon suture.? Xeroform 4 x 4's, Kerlix and an Warner wrap was applied for a bulky soft dressing.? Patient was then subsequently awakened from anesthesia and taken to PACU in stable condition tolerated procedure without issues. Disposition: Patient taken back in stable condition recovering well.? Patient will receive appropriate discharge instruction as well as pain medication postoperatively.? Patient to follow-up with me in the office in 2 weeks for repeat evaluation and incision check.? Patient understands that any questions or concerns and contact the office.? All questions answered.
--- NOTE | 2024-12-12 10:33 | ANE.PACU2 ---
Inpatient post-anesthesia follow up: Airway intact: Yes Vital signs: Temperature 97.0 F Pulse Rate 70 Respiratory Rate 18 Blood Pressure 151/83 Pulse Oximetry 95 Oxygen Delivery Me thod Room Air Oxygen Flow Rate Fraction of Inspir ed Oxygen Hydration adequate: Yes Nausea and vomiting: No Pain level: 1 Mental status: Baseline
== END 2024-12-12 10:33 | disposition home or self-care (01) ==
PROVIDERS: PCP Family Medicine; Visit Provider Student in an Organized Health Care Education/Training Program
PROC: (CPT 26055; principal; 2024-12-12 08:00)
DX: M65.351 Trigger finger, right little finger (principal); M65.331 Trigger finger, right middle finger; M65.341 Trigger finger, right ring finger; M65.321 Trigger finger, right index finger; J44.9 Chronic obstructive pulmonary disease, unspecified; Z79.899 Other long term (current) drug therapy; Z88.5 Allergy status to narcotic agent; Z88.8 Allergy status to other drugs, medicaments and biological substances; F17.210 Nicotine dependence, cigarettes, uncomplicated
CPT/HCPCS: 26055 ×3; J0131; J0690; J1885; J2704; J2795; J3010; J7030; J9999

== ENCOUNTER → 2024-12-24 13:26 | Outpatient (BNVA) | payer MEDICARE, MEDICAID, SELFPAY | PROVIDERS: PCP Family Medicine; Visit Provider Physician Assistant | DX: Z98.890 Other specified postprocedural states (principal) | CPT/HCPCS: 99024 ==